=== PATIENT | female | born 1975 | race Caucasian/White ===

== ENCOUNTER 2020-06-08 10:04 | Outpatient (CLI) | payer OTHER, SELFPAY ==
--- NOTE | 2020-06-08 10:08 | MM_ITS ---
WS: [id number] Bilateral screening digital mammogram, 06/08/2020 Clinical Data: SCREENING Comparison: 03/14/2019, 02/20/2018, 01/15/2017, 10/18/2015, 05/25/2014, 01/11/2009. Findings: The breast parenchymal pattern shows heterogeneous density No spiculated masses or clustered calcific ations are seen. There are no secondary signs of carcinoma. MM/[place] [id number] Impression: 1. Negative bilateral mammogram unchanged. 2. Recommend annual screening mammograms. BIRADS: 1-Negative FOLLOW UP: 1 Year Follow-up The CAD warehouse checker was used.
== END 2020-06-08 10:05 | disposition home or self-care (01) ==
LOC: RADSHAW 10:07
PROVIDERS: PCP Family Medicine; Visit Provider Nurse Practitioner Women's Health
DX: Z12.31 Encounter for screening mammogram for malignant neoplasm of breast (principal)
CPT/HCPCS: 77067

== ENCOUNTER → 2020-10-06 11:13 | Outpatient (BNVA) | payer OTHER, SELFPAY | PROVIDERS: PCP Family Medicine; Visit Provider Nurse Practitioner Family | DX: B34.9 Viral infection, unspecified (principal); Z20.828 Contact with and (suspected) exposure to other viral communicable diseases | CPT/HCPCS: 87635 ==

== ENCOUNTER 2020-10-26 14:54 | Outpatient (CLI) | payer OTHER, SELFPAY ==
--- NOTE | 2020-10-26 15:05 | US_ITS ---
WS: [id number] ULTRASOUND THYROID TECHNIQUE: Ultrasound of the thyroid. CLINICAL INFORMATION: POST SURGICAL HYPOTHYROIDISM COMPARISON: Ultrasound 2019 FINDINGS: Prior thyroidectomy. No significant residual thyroid tissue. No cystic or solid lesions. No lesions to target for biopsy. No lymph nodes. Cervical lymphadenopathy: None. US/US soft tissue head neck [id number] IMPRESSION: Prior thyroidectomy. No suspicious lesions to target for biopsy.
== END 2020-10-26 14:55 | disposition home or self-care (01) ==
LOC: US 14:59
PROVIDERS: PCP Family Medicine; Visit Provider Internal Medicine Endocrinology, Diabetes & Metabolism
DX: Z85.850 Personal history of malignant neoplasm of thyroid (principal); E89.0 Postprocedural hypothyroidism
CPT/HCPCS: 76536

== ENCOUNTER 2021-02-08 14:35 | Outpatient (CLI) | payer OTHER, SELFPAY ==
--- NOTE | 2021-02-08 15:07 | CT_ITS ---
WS: [id number] CT scan of the neck. Additional two-dimensional coronal and sagittal reconstruction was performed. Clinical Data: LOCALIZED SWELLING, MASS AND LUMP NECK Comparison: CT neck, 10/02/2018. DLP: 2307.[address] scans at [facility] use at least one of these dose optimization techniques: automat ed exposure control; mA and/or kV adjustment per patient size (includes targeted exams where dose is matched to clinical indication); or iterative reconstruction. Findings: The thyroid gland is absent and there are clips in the thyroid bed and left supraclavicular area. No subcutaneous mass or abscess is seen. No lymphadenopathy is noted. The salivary glands are unremarkable. There is no prevertebral soft tiss ue swelling. The larynx is symmetric. The floor of the mouth and parapharyngeal spaces are normal. T he oral cavity is unremarkable. The carotid arteries bifurcate normally. The vertebral arteries are normal. The cervical spine is unr emarkable. The lung apices show no abnormalities. The portions of the intracranial circulation which are seen demonstrate no abnormalities. No erosion of the skull or skull base is seen. CT/CT neck w con* [id number] Impression: 1. Thyroidectomy. 2. Negative for lymphadenopathy, subcutaneous mass or abscess in the thyroid be d and adjacent tissue.
[2021-02-08] MEDS: iohexol 300 mg/mL 100 mL Btl IV (15:31)
== END 2021-02-08 14:36 | disposition home or self-care (01) ==
LOC: RADWPI 14:35
PROVIDERS: PCP Family Medicine; Visit Provider Specialist
DX: R22.1 Localized swelling, mass and lump, neck (principal); E89.0 Postprocedural hypothyroidism
CPT/HCPCS: 70491; Q9967

== ENCOUNTER 2021-06-09 12:53 | Outpatient (CLI) | payer OTHER, SELFPAY ==
--- NOTE | 2021-06-09 13:00 | MM_ITS ---
WS: [id number] BILATERAL DIGITAL SCREENING MAMMOGRAPHY WITH CAD CLINICAL INFORMATION: Z12.39 - Encounter for other screening for malignant neop... HISTORY: Screening mammogram. No current complaints. COMPARISON: June 08, 2020 TECHNIQUE: Bilateral CC and MLO views. FINDINGS: The breasts are composed of heterogeneous fibroglandular density tissue, which can limit the detectio n of small underlying mass lesions. No suspicious mass, asymmetry, calcifications, or architectural d istortion. No evidence of malignancy. MM/[place] [id number] IMPRESSION: BI-RADS: 1-Negative FOLLOW UP: 1 Year Follow-up Recommend return to annual screening mammography.
== END 2021-06-09 12:54 | disposition home or self-care (01) ==
LOC: RADSHAW 12:56
PROVIDERS: PCP Family Medicine; Visit Provider Nurse Practitioner Women's Health
DX: Z12.31 Encounter for screening mammogram for malignant neoplasm of breast (principal)
CPT/HCPCS: 77067

== ENCOUNTER → 2021-09-13 08:21 | Outpatient (BNVA) | payer OTHER, SELFPAY | PROVIDERS: PCP Family Medicine; Visit Provider Internal Medicine | DX: C73 Malignant neoplasm of thyroid gland (principal); Z90.89 Acquired absence of other organs | CPT/HCPCS: 99204 ==

== ENCOUNTER 2021-09-13 09:50 | Outpatient (CLI) | payer OTHER, SELFPAY ==
[2021-09-13 11:06] LABS: Thyroid Stimulating Hormone 0.11 uIU/mL (0.27-4.20)
== END 2021-09-13 09:51 | disposition home or self-care (01) ==
PROVIDERS: PCP Family Medicine; Visit Provider Internal Medicine
DX: C73 Malignant neoplasm of thyroid gland (principal)
CPT/HCPCS: 84439; 84443

== ENCOUNTER 2022-06-12 09:57 | Outpatient (CLI) | payer OTHER, SELFPAY ==
--- NOTE | 2022-06-12 10:07 | MM_ITS ---
WS: [id number] BILATERAL SCREENING DIGITAL BREAST TOMOSYNTHESIS MAMMOGRAM WITH CAD HISTORY: SCREENING COMPARISON: 06/09/2021, 06/08/2020 and 03/14/2019 Bilateral CC and MLO views with tomosynthesis and synthetic mammography submitted. Computer aided det ection analyzed. Breast composition: The breasts are heterogeneously dense, which may obscure small masses. No suspici ous masses, microcalcifications or architectural distortion. MM/[place] [id number] IMPRESSION: BI-RADS: 1-Negative FOLLOW UP: 1 Year Follow-up
== END 2022-06-12 09:58 | disposition home or self-care (01) ==
PROVIDERS: PCP Family Medicine; Visit Provider Nurse Practitioner Women's Health
DX: Z12.31 Encounter for screening mammogram for malignant neoplasm of breast (principal)
CPT/HCPCS: 77063; 77067

== ENCOUNTER → 2022-08-15 15:05 | Outpatient (BNVA) | payer OTHER, SELFPAY | PROVIDERS: PCP Family Medicine; Visit Provider Nurse Practitioner Women's Health | DX: Z01.419 Encounter for gynecological examination (general) (routine) without abnormal findings (principal); F32.9 Major depressive disorder, single episode, unspecified; R61 Generalized hyperhidrosis | CPT/HCPCS: 88175 ==

== ENCOUNTER → 2023-04-18 08:43 | Outpatient (BNVA) | payer OTHER, SELFPAY | PROVIDERS: PCP Family Medicine; Visit Provider Podiatrist Foot & Ankle Surgery | DX: M72.2 Plantar fascial fibromatosis (principal) | CPT/HCPCS: 73630; 99203 ==

== ENCOUNTER 2023-06-22 10:17 | Outpatient (CLI) | payer OTHER, SELFPAY ==
--- NOTE | 2023-06-22 10:27 | MM_ITS ---
WS: [id number] BILATERAL SCREENING DIGITAL TOMOSYNTHESIS MAMMOGRAM WITH CAD HISTORY: SCREENING COMPARISON: 06/12/2022 and 06/09/2021 Bilateral CC and MLO views with tomosynthesis and synthetic mammography submitted. Computer aided det ection analyzed. Breast composition: The breasts are heterogeneously dense, which may obscure small masses. No suspici ous masses, microcalcifications or architectural distortion. MM/[place] [id number] IMPRESSION: BI-RADS: 1-Negative FOLLOW UP: 1 Year Follow-up
== END 2023-06-22 10:18 | disposition home or self-care (01) ==
PROVIDERS: PCP Family Medicine; Visit Provider Family Medicine
DX: Z12.31 Encounter for screening mammogram for malignant neoplasm of breast (principal)
CPT/HCPCS: 77063; 77067

== ENCOUNTER → 2023-09-06 11:07 | Outpatient (BNVA) | payer OTHER, SELFPAY | PROVIDERS: PCP Family Medicine; Visit Provider Podiatrist Foot & Ankle Surgery | DX: M72.2 Plantar fascial fibromatosis (principal) | CPT/HCPCS: 20550; J1100; J3301; J3490 ==

== ENCOUNTER → 2023-10-16 13:15 | Outpatient (BNVA) | payer OTHER, SELFPAY | PROVIDERS: PCP Family Medicine; Visit Provider Podiatrist Foot & Ankle Surgery | DX: M72.2 Plantar fascial fibromatosis (principal) | CPT/HCPCS: 99212 ==

== ENCOUNTER → 2024-03-10 08:53 | Outpatient (BNVA) | payer OTHER, SELFPAY | PROVIDERS: PCP Family Medicine; Visit Provider Podiatrist Foot & Ankle Surgery | DX: M72.2 Plantar fascial fibromatosis (principal) | CPT/HCPCS: 20550; J1100; J3301; J3490 ==

== ENCOUNTER → 2024-04-07 15:59 | Outpatient (BNVA) | payer OTHER, SELFPAY | PROVIDERS: PCP Family Medicine; Visit Provider Podiatrist Foot & Ankle Surgery | DX: M72.2 Plantar fascial fibromatosis | CPT/HCPCS: 73630 ==

== ENCOUNTER → 2024-04-30 07:28 | Outpatient (BNVA) | payer OTHER, SELFPAY | PROVIDERS: PCP Family Medicine; Visit Provider Podiatrist Foot & Ankle Surgery | DX: S93.621A Sprain of tarsometatarsal ligament of right foot, initial encounter; S82.52XA Displaced fracture of medial malleolus of left tibia, initial encounter for closed fracture; X50.1XXA Overexertion from prolonged static or awkward postures, initial encounter | CPT/HCPCS: 73610; 73620 ==

== ENCOUNTER 2024-04-30 09:50 | Outpatient (CLI) | payer OTHER, SELFPAY | END 2024-04-30 09:51 | disposition home or self-care (01) | LOC: SPT 09:50 | PROVIDERS: PCP Family Medicine; Visit Provider Podiatrist Foot & Ankle Surgery | DX: Z46.89 Encounter for fitting and adjustment of other specified devices (principal); S93.621A Sprain of tarsometatarsal ligament of right foot, initial encounter; X58.XXXD Exposure to other specified factors, subsequent encounter | CPT/HCPCS: L4361 ==

== ENCOUNTER 2024-05-01 15:01 | Outpatient (CLI) | payer OTHER, SELFPAY ==
--- NOTE | 2024-05-01 15:15 | MRR_ITS ---
PROCEDURE INFORMATION: Exam: MR Right Lower Extremity Other Than Joint Without Contrast; Foot Exam date and time: 05/01/2024 3:24 PM Age: 48 years old Clinical indication: Injury or trauma; Other: Twisted foot; Sprain or strain; Right; Additional info: Surgical planning, lisfranc injury, 2mm slices and forefoot protocol TECHNIQUE: Imaging protocol: Magnetic resonance imaging of the right lower extremity without contrast. Exam focused on the foot. COMPARISON: CR XR foot RT 2V [id number] 04/30/2024 7:36 AM FINDINGS: There is subtle 1 mm offset of the 2nd tarsometatarsal articulation alignment with edema of the Lisfranc ligamentous complex. There is attenuation/indistinctness of the dorsal band of the Lisfranc ligament proper suggestive of partial tear. The interosseous and plantar bands are intact with evidence of sprain. There is a minimally displaced avulsion fracture of the plantar aspect of the 2nd metatarsal base at the plantar band attachment (images 9-10 of series 501). Additional nondisplaced avulsion fracture of the dorsum of the 3rd metatarsal base at the intermetatarsal ligament attachment (image 8 of series 501). There are subtle avulsive injuries of the medial aspect of the 1st metatarsal base and medial cuneiform (images 10-11 of series 701). Consider correlation with CT to evaluate for additional subtle avulsive injuries. Nondisplaced intra-articular fracture of the 4th metatarsal base. There may be subtle avulsive injuries of the dorsum of the cuboid in the region of the 4th tarsometatarsal articulation and dorsal lateral 3rd metatarsal base. There is associated surrounding soft tissue edema of the midfoot. No discrete fluid collection or hematoma. Visualized flexor and extensor tendons are intact. MR/MR foot RT wo con* [id number] IMPRESSION: 1. Lisfranc fracture-subluxation partial tear of the dorsal band and avulsion fracture of the base of the 2nd metatarsal at the plantar band attachment. 2. Nondisplaced avulsion fracture of the dorsum of the 3rd metatarsal base. 3. Nondisplaced intra-articular fracture of the 4th metatarsal base. 4. Subtle avulsive injuries of the 1st metatarsal base, medial cuneiform, lateral cuneiform and possibly the 3rd metatarsal base and dorsum of the cuboid. Correlation with CT may be helpful for osseous detail.
== END 2024-05-01 15:02 | disposition home or self-care (01) ==
PROVIDERS: PCP Family Medicine; Visit Provider Podiatrist Foot & Ankle Surgery
DX: S93.621A Sprain of tarsometatarsal ligament of right foot, initial encounter (principal); S92.321A Displaced fracture of second metatarsal bone, right foot, initial encounter for closed fracture; S92.331A Displaced fracture of third metatarsal bone, right foot, initial encounter for closed fracture; S92.344A Nondisplaced fracture of fourth metatarsal bone, right foot, initial encounter for closed fracture
CPT/HCPCS: 73718

== ENCOUNTER 2024-05-08 08:22 | Day surgery (SDC) | payer OTHER, SELFPAY ==
[2024-05-08] VITALS (14 sets, daily range): BP systolic 112–164; BP diastolic 67–96; PULSE 60–83; RESP 6–21; TEMP 36.1–36.4; O2SAT 91–96; BMI 29.1
[2024-05-08 08:55] LABS: OR HCG Qualitative Urine Negative (Negative)
[2024-05-08] MEDS: sodium chloride 0.9% 1,000 ML 30 ML IV (08:57)
[2024-05-08] MEDS: scopolamine 1.5 Patch 1 PATCH TRANSDERMA (08:57)
[2024-05-08] MEDS: CELEcoxib 200 mg Capsule 400 MG PO (08:58)
[2024-05-08] MEDS: gabapentin 300 mg Capsule PO (09:03)
--- NOTE | 2024-05-08 09:50 | P.HPUD_ITS ---
Surgery/Procedure H&P Update DATE OF PROCEDURE: May 08, 2024 DATE H&P PERFORMED: 05/05/24 H&P UPDATE INFORMATION: I have reviewed H&P completed within last 30 days, I have examined patient prior to procedure, No changes to prior documentation and H&P is in [facility] [place] on date indicated PREOP DIAGNOSIS: Right Lisfranc fracture and metatarsal fractures 1 through 4. PLANNED PROCEDURE: Operation Date: 05/08/24 09:00 Proposed Procedures p First and second tarsometatarsal joint fusion(Right) - Se Alfred DPM s ORIF right third metatarsal and right fourth metatarsal fracture(Right) - Se Alfred DPM
--- NOTE | 2024-05-08 09:55 | ANES.PREANE2 ---
Pre-Anesthetic Assessment Height/Weight: Height 1.65 m Weight 79.379 kg Temp Pulse Resp BP Pulse Ox O2 Del Method 97.6 F 76 17 164/94 96 Room Air 05/08/24 08:43 05/08/24 08:43 05/08/24 08:43 05/08/24 08:43 05/08/24 08:43 05/08/24 08:48 Preop Diagnosis: Right Lisfranc fracture and metatarsal fractures 1 through 4. Operation Date: 05/08/24 09:00 Proposed Procedures p First and second tarsometatarsal joint fusion(Right) - Se Alfred DPM s ORIF right third metatarsal and right fourth metatarsal fracture(Right) - Se Alfred DPM Familial anesthetic complications: none Was Beta Twyla taken within 24 hours: N/A Was Clonidine taken within 24 hours: N/A Last intake: Intake Last Liquid Date 05/07/24 Last Liquid Time 18:00 Last Solid Date 05/07/24 Last Solid Time 18:00 Social No alcohol and No tobacco Exam alert, oriented x 3, clear to auscultation bilaterally and regular rate & rhythm Airway Submandibular: within normal limits Cervical ROM: within normal limits Mallampati: Class II Dentition: full CV/HEM Hypertension Metabolic Thyroid Disease Neuropsych Anxiety and Depression Anesthetic Plan ASA status: 2 Anesthesia: General (TIVA) and Regional (specify below) (Popliteal blk) Medications/Allergies Home Medications Medication Instructions Recorded Confirmed Last Taken Type alprazolam 0.5 mg tablet 0.5 mg PO BEDTIME 04/18/23 05/07/24 05/07/24 History desogestrel 0.15 mg-ethinyl 1 tab PO DAILY #84 tabs 09/06/23 05/07/24 05/07/24 Rx estradiol 0.03 mg tablet (Apri) losartan 25 mg tablet 50 mg PO DAILY 11/11/23 05/07/24 05/07/24 History Cam boot to right #1 ea 04/30/24 05/05/24 Unknown Rx levothyroxine 150 mcg tablet 175 mcg PO DAILY 05/06/24 05/08/24 05/08/24 07:00 History fluoxetine 20 mg capsule 20 mg PO DAILY 05/07/24 05/07/24 05/07/24 History Allergies Allergy/AdvReac Type Severity Reaction Status Date / Time No Known Allergies Allergy Verified 05/08/24 08:38 Current Medications Generic Name Dose Route Start Last Admin Trade Name Freq PRN Reason Stop Dose Admin Sodium Chloride 1,000 mls @ 30 mls/hr 05/08/24 08:30 05/08/24 08:57 Sodium Chloride 0.9% IV 05/09/24 08:29 30 mls/hr .Q24H RAMON Administration PFSH Anesthesia Medical History No pertinent past medical history neghx: dm,dvt/pe PCP: Dr. Moy Hypothyroid Depression History of thyroid cancer treated with thyroidectomy and radioactive iodine. Surgical History History of dacryocystorhinostomy (~2021) RIGHT EYE History of thyroidectomy (10/2018) cancer--- finished with radioactive iodine Family History Father Diabetes Mother Hypertension Hyperlipidemia Breast cancer dx age 51 Heart disease Denies family history of Colon cancer Ovarian cancer Uterine cancer Thyroid disease Stroke Data Anesthesia Cardiac Studies: No Data to Display
[2024-05-08] MEDS: ceFAZolin 2,000 MG in sodium chloride 0.9% (plus) 50 ML 100 MG IV (10:17)
--- NOTE | 2024-05-08 10:36 | ANES.PROC ---
Anesthesia Procedures Procedure/Date: 05/08/24 Nerve Block ^: Nerve Block 1: Main Anesthesia: general anesthesia Time Out Performed: Yes Consent: requested by attending/covering physician, from patient, risks and benefits reviewed and patient agrees to proceed Nerve block location: popliteal (right) Anesthesia monitors applied: pulse oximetry, EKG, BP cuff and oxygen Nerve block position: supine Anesthetic Used: ropivicaine 0.5% Amount of anesthesia used (mL): 30 Ultrasound used to: recognize landmarks Nerve Stimulator Used?: No Interscalene/Femoral BLK: 4 stimuplex 21 g needle used for position and inplane approach Injection: neg aspiration of heme Patient Tolerated Procedure: well Complications: none
--- NOTE | 2024-05-08 10:52 | PM.OP ---
Operative Report Date of procedure: May 08, 2024 Pre-op diagnosis: Lisfranc fracture right foot involving first, second, third and fourth metatarsals. Post-op diagnosis: Same Procedure done: First and second tarsometatarsal joint fusion right foot. CPT code 46622 Implants: Miami Lapidus plate, Miami straight slanted plate. Miami 4 mm screw, Miami 3.5 millimeter screws and [place] 2.7 millimeter screws. 3-0 Vicryl, 4-0 Vicryl, 4-0 nylon Specimens removed/disposition: No specimens Pathology: No pathology Surgeon: Se Alfred DPM Advertising Account Representative: See intraoperative documentation Estimated blood loss: 5 See intraoperative documentation IV fluids: 0 Urine output: None Complications: No complications Brief History: Ms. Mccrary is an established 48 year old female patient here for follow up of her right foot pain and to go over recent MRI results. DOI 04/23/24. Patient reports while in [place] she was attempting to get into the pool and rolled left ankle and right foot curled under. Patient examined and evaluated, findings and treatment options discussed with patient at length. She has a closed fracture of the first, second, third, fourth metatarsals that are avulsion fracture and ligamentous injury of the first and second tarsometatarsal joints indicating substantial Lisfranc instability. Discussed various treatment options both conservative and surgical, I expressed concern with conservative treatment that she will invest time and recovery that will yield no significant healing and likely remain unstable and require surgical intervention staged out. Discussed ORIF versus primary arthrodesis given that her injury is largely ligamentous I am recommending primary arthrodesis of the first and second tarsometatarsal joints and possible ORIF of right third and fourth metatarsal fractures. I reviewed at length with the patient, the risks, potential complications, benefits, alternatives, expectations, and typical outcomes associated with the surgery. The risks and potential complications were explained in detail, including but not limited to infection, wound dehiscence or soft tissue complications, bleeding and hematoma, chronic edema, neuritis or nerve damage producing numbness or chronic pain, CRPS, failure to relieve pain or worsening pain, thick / painful / unsightly scar, limited motion / stiffness, malposition, delayed union, malunion, or nonunion, fracture, reaction to implants, anesthetic complications, venous thromboembolism, and deformity recurrence. I discussed the notion of no regrets with the patient as it pertains to complications and outcomes. The patient seemed to understand the nature of the proposed care and required convalescence. They asked appropriate questions, answered to their satisfaction. They are aware no guarantees can be made as to a satisfactory outcome and they understand there may be other possible unforeseen complications or outcomes not listed here that will be treated accordingly if they arise. There were no written or implied guarantees given to the patient. They gave informed consent to proceed. Procedure: Under mild sedation patient was brought to the operating room and placed on the operating table in supine position. A timeout was performed. Anesthesia was then administered by the anesthesia service. Local anesthesia injected by myself consisting of Marcaine and Exparel in a V-block proximal to the operative site, 20 cc of Marcaine 0.5% and 20 cc of Exparel. Well-padded pneumatic tourniquet applied to the right ankle. Right lower extremity was scrubbed, prepped and draped utilizing normal aseptic technique. Right foot was then exanguinated with an Esmarch bandage and tourniquet inflated to 250 mmHg. Patient was directed to the right first and second tarsometatarsal joints where dual incision was performed, incision was performed at the medial column at the medial aspect of the extensor hallucis longus tendon and at the second ray through skin with dissection carried down through subcutaneous tissue utilizing sharp and blunt technique down to the layer of periosteum with care taken to retract and preserve neurovascular and tendinous structures. All bleeders were ligated and cauterized as necessary. Periosteal incision was made in the base of the second and first metatarsal were freed from the soft tissue and ligamentous attachments, of note there was gross instability of the first and second tarsometatarsal joints. First and second tarsometatarsal joints were prepped for arthrodesis utilizing curettage, subchondral drilling and reduced and held temporarily with fracture reduction clamp and anatomic alignment under compression and then fixated utilizing standard AO technique, homerun screw at the first tarsometatarsal joint followed by Lapidus plate and compression plate dorsal locking at the second ray with excellent bony apposition and compression noted. AP, oblique and lateral views confirmed excellent placement of hardware not violating proximal or distal joints and anatomic alignment of the first and second tarsometatarsal joint arthrodesis site. Incisions were irrigated with saline solution and closed in a layered fashion with periosteum reapproximated with 3-0 Vicryl, subcutaneous tissue with 4-0 Vicryl and skin with 4-0 nylon. Stability appreciated at the third and fourth tarsometatarsal joints not necessitating fixation. Dressing consisting of Adaptic, sterile 4 x 4's, Kerlix, Ronal wrap and cam boot was applied. Tourniquet was deflated and a prompt hyperemic response was noted to the distal digits of the right foot. Patient tolerated procedure and anesthesia well and was transferred to the PACU with vital signs stable and vascular status intact. Following a period of postoperative monitoring she will be discharged home is to remain strict nonweightbearing and elevate right foot while resting. Was given at home care instructions and scheduled follow-up.
[2024-05-08] MEDS: BUPivacaine 0.5% INJ 30 mL XX (10:53)
[2024-05-08] MEDS: BUPivacaine liposome 13.3 mg/mL SDV 20 mL 266 MG INJECTION (11:41)
--- NOTE | 2024-05-08 12:08 | P.BOP_ITS ---
Date of Procedure: 02/08/24 Surgeon: Se Alfred DPM Clinical Practitioner(s): MARCELO Procedure(s) performed: Midfoot fusion first and second tarsometatarsal joints right foot Findings of the procedure(s): Gross instability at first and second tarsometatarsal joints right foot Estimated blood loss: 2 mL Specimen(s) removed: None Post-operative diagnosis: Right Lisfranc fracture dislocation No complications with anesthesia or surgery. Patient is nonweightbearing may heel touch only for transfer to the right lower extremity.
--- NOTE | 2024-05-08 12:38 | ANE.PACU2 ---
Inpatient post-anesthesia follow up: Airway intact: Yes Vital signs: Temperature 97.4 F Pulse Rate 81 Respiratory Rate 15 Blood Pressure 152/78 Pulse Oximetry 91 Oxygen Delivery Me thod Room Air Oxygen Flow Rate Fraction of Inspir ed Oxygen Hydration adequate: Yes Nausea and vomiting: No Pain level: 1 Mental status: Baseline
[2024-05-08] MEDS: oxyCODONE-APAP 10-325 mg Tablet 1 TAB PO (13:35)
--- NOTE | 2024-05-08 13:43 | XR_ITS ---
WS: [id number] C-ARM RADIOGRAPHS RIGHT FOOT; 2 IMAGES HISTORY: ORIF OF FOOT COMPARISON: None available. Intraoperative fixation hardware has been placed across the first tarsal metatarsal articulation and also at the second tarsometatarsal articulation. Horizontal screws extend between the first and secon d cuneiforms. XR/XR foot RT 2V [id number] IMPRESSION: Intraoperative fixation hardware between the medial and intermediate cuneiforms and the first and second proximal metatarsals.
== END 2024-05-08 13:55 | disposition home or self-care (01) ==
PROVIDERS: PCP Family Medicine; Visit Provider Podiatrist Foot & Ankle Surgery
PROC: (CPT 28740; principal; 2024-05-08 09:00)
PROC: (CPT 28485; 2024-05-08 09:00)
DX: S92.311A Displaced fracture of first metatarsal bone, right foot, initial encounter for closed fracture (principal); S92.321A Displaced fracture of second metatarsal bone, right foot, initial encounter for closed fracture; S92.331A Displaced fracture of third metatarsal bone, right foot, initial encounter for closed fracture; S92.341A Displaced fracture of fourth metatarsal bone, right foot, initial encounter for closed fracture; X50.9XXA Other and unspecified overexertion or strenuous movements or postures, initial encounter; I10 Essential (primary) hypertension; E03.9 Hypothyroidism, unspecified; F32.A Depression, unspecified; Z85.850 Personal history of malignant neoplasm of thyroid
CPT/HCPCS: 28730; 73620; 76000; 81025; C1713; C9290; J0690; J1100; J1170; J1200; J2250; J2405; J2704; J2795; J3010; J3490; J7030

== ENCOUNTER → 2024-05-27 11:08 | Outpatient (BNVA) | payer OTHER, SELFPAY | PROVIDERS: PCP Family Medicine; Visit Provider Podiatrist Foot & Ankle Surgery | DX: Z98.890 Other specified postprocedural states (principal) | CPT/HCPCS: 73630 ==

== ENCOUNTER → 2024-06-19 13:12 | Outpatient (BNVA) | payer OTHER, SELFPAY | PROVIDERS: PCP Family Medicine; Visit Provider Podiatrist Foot & Ankle Surgery | DX: Z98.890 Other specified postprocedural states (principal) | CPT/HCPCS: 73630 ==

== ENCOUNTER 2024-07-03 08:48 | Outpatient (CLI) | payer OTHER, SELFPAY ==
--- NOTE | 2024-07-03 08:51 | MM_ITS ---
WS: [id number] BILATERAL SCREENING DIGITAL TOMOSYNTHESIS MAMMOGRAM WITH CAD HISTORY: SCREENING COMPARISON: 06/22/2023, 06/12/2022 and 06/08/2020 Bilateral CC and MLO views with tomosynthesis and synthetic mammography submitted. Computer aided det ection analyzed. Breast composition: The breasts are heterogeneously dense, which may obscure small masses. No suspici ous masses, microcalcifications or architectural distortion. MM/[place] [id number] IMPRESSION: BI-RADS: 2-Benign FOLLOW UP: 1 Year Follow-up
== END 2024-07-03 08:49 | disposition home or self-care (01) ==
LOC: RAD 08:48
PROVIDERS: PCP Family Medicine; Visit Provider Nurse Practitioner Women's Health
DX: Z98.890 Other specified postprocedural states (principal)
CPT/HCPCS: 73630; 77063; 77067

== ENCOUNTER → 2024-07-24 06:51 | Outpatient (BNVA) | payer OTHER, SELFPAY | PROVIDERS: PCP Family Medicine; Visit Provider Podiatrist Foot & Ankle Surgery | DX: Z98.890 Other specified postprocedural states (principal) | CPT/HCPCS: 73630 ==

== ENCOUNTER 2024-08-19 09:07 | Outpatient (CLI) | payer OTHER, SELFPAY ==
--- NOTE | 2024-08-19 10:11 | PETR_ITS ---
PROCEDURE INFORMATION: Exam: PET/CT Skull Base to Mid-thigh Exam date and time: 08/19/2024 10:57 AM Age: 49 years old Clinical indication: Condition or disease; Primary cancer: Thyroid cancer; Initial oncological staging assessment LABS AND CLINICAL REPORTS: Glucose: 97 mg/dl Treatment strategy for malignancy (PET staging): Initial Staging (PI) TECHNIQUE: Imaging protocol: Following at least four-hour fasting and following the injection of radiopharmaceutical, low dose CT images were obtained. Then, PET images were obtained. Attenuation corrected images were constructed using the CT scan. Fused images of PET and CT were reviewed. The standardized uptake values (SUV) reported below are maximum values within a region of interest, expressed in gm/ml. Exam includes orbital meatal line to mid-thigh. Radiopharmaceutical: 10.57 mCi F-18 FDG (Fluorodeoxyglucose), IV. Time of imaging post radiopharmaceutical administration: 1 hour Injection site: Right antecubital vein COMPARISON: CT neck w con* [id number] 02/08/2021 3:17 PM FINDINGS: Brain: Visualized brain has normal physiologic uptake. Pharynx: Benign bilateral symmetric uptake in the tonsils and in the sublingual area. Larynx: No abnormal uptake. Thyroid: Status post thyroidectomy. Linear uptake up to 5.2 SUV within the resection bed of the thyroid descending into the suprasternal notch possibly represents benign inflammatory finding. Lungs, pleura and trachea: There are small bilobar FDG avid lung nodule suggestive of metastases, 4 nodules in the left lung and 1 nodule in the right lung measuring up to 0.9 cm with the highest uptake of 14.9 SUV. No pleural effusion. Heart: Normal physiologic uptake. There is no cardiomegaly. No coronary artery calcification is visualized. There is no pericardial effusion. Mediastinal space: No abnormal uptake. Liver: No abnormal uptake. Gallbladder and biliary ducts: No abnormal uptake. No calcified gallstones. Pancreas: No abnormal uptake. Spleen: No abnormal uptake. No splenomegaly. Adrenal glands: No abnormal uptake. No nodules. Kidneys and ureters: Normal physiologic uptake. No hydronephrosis. Stomach and bowel: No abnormal uptake. Diverticulosis in the sigmoid colon with no signs of acute diverticulitis. Vasculature: No abnormal uptake. No aortic aneurysm. Lymph nodes: 0.7 cm left parapharyngeal lymph node measures 21.3 SUV. No FDG avid lymphadenopathy in the chest, abdomen, pelvis, and extremities. Skeleton: No abnormal uptake in the visualized axial and appendicular skeleton. Soft tissues: 0.5 cm subcutaneous nodule in the right posterior perineum on series 202, image 57 with increased uptake of 3.6 SUV for correlation with physical exam. PET/PET skull to thigh INIT [id number] IMPRESSION: Postsurgical changes after thyroidectomy with possibly benign postsurgical inflammatory uptake in the resection bed of the thyroid. Left parapharyngeal lymph node with intense uptake of 21.3 SUV suggestive of shanti metastasis. A few subcentimeter bilateral lung metastases with the highest uptake of 14.9 SUV. 0.5 cm subcutaneous nodule in the right posterior perineum with slightly increased uptake of 3.6 SUV may be inflammatory in nature for correlation with physical exam.
== END 2024-08-19 09:08 | disposition home or self-care (01) ==
PROVIDERS: Absent Provider Internal Medicine Cardiovascular Disease; PCP Family Medicine; Visit Provider Otolaryngology
DX: C73 Malignant neoplasm of thyroid gland (principal); Z90.89 Acquired absence of other organs; R91.8 Other nonspecific abnormal finding of lung field; K57.90 Diverticulosis of intestine, part unspecified, without perforation or abscess without bleeding; R59.0 Localized enlarged lymph nodes; R93.89 Abnormal findings on diagnostic imaging of other specified body structures
CPT/HCPCS: 78815; A9552

== ENCOUNTER 2024-11-02 10:44 | Emergency (ER) | payer OTHER, SELFPAY ==
[2024-11-02 11:44] VITALS: BP 166/96; PULSE 83; RESP 18; TEMP 36.9; O2SAT 98; BMI 29.6
--- NOTE | 2024-11-02 11:59 | ED_ITS ---
HPI - General Adult 2 General: Chief complaint: General Medical Stated complaint: unable to eat or drink Time Seen by Provider: 11/02/24 11:55 Source: patient Mode of arrival: ambulatory Limitations: no limitations History of Present Illness: 49-year-old female states she had a tons illectomy done on Sunday had a lymph node removed on the left side as well. States she had some swelling since and is having a hard time tolerating p.o. She denies any fever denies any bleeding she denies any shortness of breath Associated symptoms: Deny chest pain, dyspnea, headache(s), nausea, rash or vomiting Related Data Home Medications Medication Instructions Recorded Confirmed alprazolam 0.5 mg tablet 0.5 mg PO BEDTIME 04/18/23 11/02/24 fluoxetine 20 mg capsule 20 mg PO DAILY 11/02/24 11/02/24 levothyroxine 175 mcg tablet 175 mcg PO QAM 11/02/24 11/02/24 losartan 50 mg tablet 50 mg PO DAILY 11/02/24 11/02/24 oxycodone 5 mg tablet 5 mg PO Q4H 11/02/24 11/02/24 Previous Rx's Medication Instructions Recorded desogestrel 0.15 mg-ethinyl 1 tab PO DAILY #84 tabs 10/28/24 estradiol 0.03 mg tablet (Cyred EQ) Allergies Allergy/AdvReac Type Severity Reaction Status Date / Time No Known Allergies Allergy Verified 11/02/24 10:27 Review of Systems 2 Const: Denies: fever(s), chills, body aches or change in appetite ENMT: Reports: throat pain; Denies: dental pain Card: Denies: chest pain Resp: Denies: dyspnea GI: Denies: abdominal pain, nausea, vomiting or diarrhea Musc: Denies: neck pain or back pain Skin/Breast: Denies: rash Neuro: Denies: headache(s) PFSH ED 2 PFSH: Medical History No pertinent past medical history neghx: dm,dvt/pe PCP: Dr. Moy Hypothyroid Depression History of thyroid cancer treated with thyroidectomy and radioactive iodine. Surgical History H/O foot surgery Midfoot fusion first and second tarsometatarsal joints right foot H/O neck surgery revision of thyroidectomy, with lymph node removal- 2 out of 3 were malignant History of dacryocystorhinostomy (~2021) RIGHT EYE History of thyroidectomy (10/2018) cancer--- finished with radioactive iodine Family History Father Diabetes Mother Hypertension Hyperlipidemia Breast cancer dx age 51 Heart disease Denies family history of Colon cancer Ovarian cancer Uterine cancer Thyroid disease Stroke Social History Smoking and tobacco/nicotine status: never used tobacco/nicotine Second hand smoke exposure: No Alcohol intake: never Substance/Drug Use: never Physical Exam 2 Const: COMMON NORMALS: no acute distress, patient oriented x3 and healthy appearing HENMT: COMMON NORMALS: normocephalic and atraumatic HEAD & SCALP: n ormocephalic and atraumatic OTHER: Swelling posterior pharynx postsurgical he is able to tolerate her own saliva no bleeding Eye: COMMON NORMALS: Equal, round and reactive pupils present and EOMs intact bilaterally PUPIL: Yes Equal, round and reactive pupils present Neck/C-Spine: COMMON NORMALS: full ROM and supple Chest: COMMONS NORMALS: normal inspection of the chest Resp: COMMON NORMALS: normal respiratory effort Cardio: COMMON NORMALS: regular rate RATE: regular rate Extremity: COMMON NORMALS: normal to inspection and full ROM Neuro: COMMON NORMALS: patient oriented x3, moves all extremities and no focal motor deficits Psych: COMMON NORMALS: mental status grossly normal, Normal thought process present and cooperative THOUGHT PROCESS: Normal thought process present Skin: COMMON NORMALS: no rashes or lesions noted and no wounds GENERAL SKIN EXAM: no rashes or lesions noted Course 2 Vital Signs: Vital signs: Vital Signs Temperature 98.4 F 11/02/24 11:44 Pulse Rate 76 11/02/24 12:04 Respiratory Rate 18 11/02/24 11:44 Blood Pressure 161/93 11/02/24 12:04 Pulse Oximetry 96 11/02/24 12:04 Oxygen Delivery Me thod Room Air 11/02/24 12:04 MDM - General Adult Medical Decision Making Patient presents here with difficulty swallowing is likely from her tonsillectomy. She is given Decadron here she is able to tolerate liquids states she feels much improved has no signs of obstruction no fever she is to call her ENT in the morning she is return if worsening she understands agrees to plan. Medical Records I reviewed the patient's medical records. Lab Data I reviewed the patient's lab results. 11/02/24 12:25 11/02/24 12:25 Laboratory Results WBC 11.58 10^3/uL (3.29-11.43) H 11/02/24 12:25 RBC 4.72 10^6/uL (3.85-5.65) 11/02/24 12:25 Hgb 13.60 g/dL (11.27-16.99) 11/02/24 12:25 Hct 42.3 % (36-47) 11/02/24 12: MCV 89.6 fl (85-98) 11/02/24 12:25 MCH 28.8 pg (27-33) 11/02/24 12:25 MCHC 32.2 g/dL (30-55) 11/02/24 12:25 RDW 12.5 % (12.1-15.1) 11/02/24 12:25 Plt Count 237 10^3/cmm (157-399) 11/02/24 12: MPV 10.1 fL (7.4-10.4) 11/02/24 12:25 Neut % (Auto) 82.0 % 11/02/24 12:25 Lymph % (Auto) 10.8 % 11/02/24 12:25 [place] % (Auto) 6.1 % 11/02/24 12:25 Eos % (Auto) 0.1 % 11/02/24 12:25 Baso % (Auto) 0.3 % 11/02/24 12:25 Neut # (Auto) 9.50 10^3/uL (1.8-7.7) H 11/02/24 12:25 Lymph # (Auto) 1.3 10^3/uL (0.8-4.8) 11/02/24 12:25 [place] # (Auto) 0.7 10^3/uL (0.2-0.9) 11/02/24 12:25 Eos # (Auto) 0.0 10^3/uL (0.0-0.8) 11/02/24 12:25 Baso # (Auto) 0.0 10^3/uL (0.0-0.1) 11/02/24 12:25 Nucleated RBC % (auto) 0 % 11/02/24 12:25 Nucleated RBCs # 0.0 /100WBC 11/02/24 12:25 Sodium 135 mmol/L (136-145) L 11/02/24 12:25 Potassium 3.8 mmol/L (3.5-5.1) 11/02/24 12:25 Chloride 99 mmol/L (98-107) 11/02/24 12:25 Carbon Dioxide 21 mmol/L (22-29) L 11/02/24 12:25 Anion Gap 18.8 (5-19) 11/02/24 12:25 BUN 13 mg/dL (6-20) 11/02/24 12:25 Creatinine 0.8 mg/dL (0.5-0.9) 11/02/24 12:25 GFR Calculation 75.9 mL/min (90-130) L 11/02/24 12:25 Glucose 76 mg/dL (65-115) 11/02/24 12:25 Calculated Osmolality 279 mOsm/kg (285-295) L 11/02/24 12:25 Calcium 8.6 mg/dL (8.5-10.5) 11/02/24 12:25 Total Bilirubin 0.4 mg/dL (0.15-1.2) 11/02/24 12:25 AST 14 U/L (0-32) 11/02/24 12:25 ALT 10 U/L (0-33) 11/02/24 12:25 Alkaline Phosphatase 118 U/L (35-105) H 11/02/24 12:25 Total Protein 6.9 g/dL (6.6-8.7) 11/02/24 12:25 Albumin 3.6 g/dL (3.5-5.2) 11/02/24 12:25 Globulin 3.3 g/dL (1.3-4.6) 11/02/24 12:25 No radiology studies performed this visit Discharge Plan Discharge Patient Disposition: Home Clinical Impression: Difficulty swallowing Condition: Stable Prescriptions: No Action alprazolam 0.5 mg tablet 0.5 mg PO BEDTIME desogestrel-ethinyl estradiol [Cyred EQ] 0.15-0.03 mg tablet 1 tab PO DAILY Qty: 84 3RF losartan 50 mg tablet 50 mg PO DAILY levothyroxine 175 mcg tablet 175 mcg PO QAM oxycodone 5 mg tablet 5 mg PO Q4H fluoxetine 20 mg capsule 20 mg PO DAILY Discharge Orders: Discharge ED (Routine); Ordered 11/02/24 Ordered By: Maria T Dooley Referrals: Romero Moy MD [Primary Care Provider] - 4-7 days Discharge Diet: Advance as tolerated Discharge Activity: Resume usual activity Patient Instructions: Tonsillectomy (DC) Coding Level of Care Code ED Dietary Aid for Darek Steele
[2024-11-02 12:04] VITALS: BP 161/93; PULSE 76; O2SAT 96
[2024-11-02] MEDS: dexamethasone 10 mg/mL INJ IVP (12:24)
[2024-11-02] MEDS: sodium chloride 0.9% 1,000 ML 999 ML IV (12:24)
[2024-11-02 12:34] LABS: Basophils % 0.3 %; Eosinophils % 0.1 %; Hematocrit 42.3 % (36-47); Lymphocytes # 1.3 10^3/uL (0.8-4.8); Lymphocytes % 10.8 %; Mean Corpuscular HGB Conc 32.2 g/dL (30-55); Mean Corpuscular Hemoglobin 28.8 pg (27-33); Mean Corpuscular Volume 89.6 fl (85-98); Mean Platelet Volume 10.1 fL (7.4-10.4); Monocytes # 0.7 10^3/uL (0.2-0.9); Monocytes % 6.1 %; Nucleated Red Blood Cells % 0 %; Platelet Count 237 10^3/cmm (157-399); Red Blood Count 4.72 10^6/uL (3.85-5.65); Red Cell Distribution Width 12.5 % (12.1-15.1); White Blood Count 11.58 10^3/uL (3.29-11.43)
[2024-11-02 12:49] LABS: Alanine Aminotransferase 10 U/L (0-33); Albumin Level 3.6 g/dL (3.5-5.2); Alkaline Phosphatase 118 U/L (35-105); Anion Gap 18.8 (5-19); Aspartate Amino Transferase 14 U/L (0-32); Blood Urea Nitrogen 13 mg/dL (6-20); Calcium 8.6 mg/dL (8.5-10.5); Carbon Dioxide 21 mmol/L (22-29); Chloride 99 mmol/L (98-107); Creatinine Clr Calc Pharmacy 88.3145; Globulin 3.3 g/dL (1.3-4.6); Glomerular Filtration Rate 75.9 mL/min (90-130); Glucose 76 mg/dL (65-115); Osmolality Calculated 279 mOsm/kg (285-295); Potassium 3.8 mmol/L (3.5-5.1); Sodium 135 mmol/L (136-145); Total Bilirubin 0.4 mg/dL (0.15-1.2); Total Protein 6.9 g/dL (6.6-8.7)
[2024-11-02 13:34] VITALS: BP 145/83; PULSE 78; O2SAT 96
== END 2024-11-02 13:36 | disposition home or self-care (01) ==
PROVIDERS: Emergency Provider Emergency Medicine; PCP Family Medicine
DX: R13.10 Dysphagia, unspecified (principal); Z85.850 Personal history of malignant neoplasm of thyroid
CPT/HCPCS: 80053; 85025; 96374; 99284; J1100; J7030

== ENCOUNTER 2024-11-20 15:06 | Outpatient (CLI) | payer OTHER, SELFPAY ==
--- NOTE | 2024-11-20 15:30 | MM_ITS ---
WS: [id number] LEFT 3D TOMOSYNTHESIS DIGITAL MAMMOGRAPHY WITH CAD CLINICAL INFORMATION: N64.52 - Nipple discharge HISTORY: LEFT breast nipple discharge sometimes bloody. COMPARISON: 07/03/2024 and 06/02/2023 TECHNIQUE: 3 views of the left breast were obtained. FINDINGS: The left breast is composed of heterogeneous fibroglandular density tissue, which can limit the detec tion of small underlying mass lesions. Somewhat dense parenchymal tissue subareolar LEFT breast. Ultr asound of this area is pending. ULTRASOUND BREAST LEFT TECHNIQUE: Ultrasound left breast focused area of concern. CLINICAL INFORMATION: N64.52 - Nipple discharge FINDINGS: Ultrasound subareolar LEFT breast. Numerous dilated ducts subareolar LEFT breast. Dilated ducts demon strate intraductal debris. No focal solid intraductal or vascular lesions visualized to target for bi opsy. Recommend 6-month follow-up to evaluate change or stability. If continued or recurrent bloody nipple discharge or palpable lump patient can return sooner for me[place] tional evaluation MM/MM diag LT tomosynthesis [id number] IMPRESSION: DENSITY: The breasts are heterogeneously dense, which may obscure small masses. BI-RADS: 3 - Probably Benign FOLLOW UP: 6 Month Follow-up Recommend 6-month follow-up LEFT breast diagnostic mammography and ultrasound f or the dilated ducts subareolar LEFT breast
--- NOTE | 2024-11-20 16:00 | US_ITS ---
WS: [id number] LEFT 3D TOMOSYNTHESIS DIGITAL MAMMOGRAPHY WITH CAD CLINICAL INFORMATION: N64.52 - Nipple discharge HISTORY: LEFT breast nipple discharge sometimes bloody. COMPARISON: 07/03/2024 and 06/02/2023 TECHNIQUE: 3 views of the left breast were obtained. FINDINGS: The left breast is composed of heterogeneous fibroglandular density tissue, which can limit the detec tion of small underlying mass lesions. Somewhat dense parenchymal tissue subareolar LEFT breast. Ultr asound of this area is pending. ULTRASOUND BREAST LEFT TECHNIQUE: Ultrasound left breast focused area of concern. CLINICAL INFORMATION: N64.52 - Nipple discharge FINDINGS: Ultrasound subareolar LEFT breast. Numerous dilated ducts subareolar LEFT breast. Dilated ducts demon strate intraductal debris. No focal solid intraductal or vascular lesions visualized to target for bi opsy. Recommend 6-month follow-up to evaluate change or stability. If continued or recurrent bloody nipple discharge or palpable lump patient can return sooner for me[place] tional evaluation US/US breast LT limited* [id number] IMPRESSION: DENSITY: The breasts are heterogeneously dense, which may obscure small masses. BI-RADS: 3 - Probably Benign FOLLOW UP: 6 Month Follow-up Recommend 6-month follow-up LEFT breast diagnostic mammography and ultrasound f or the dilated ducts subareolar LEFT breast
== END 2024-11-20 15:07 | disposition home or self-care (01) ==
LOC: RAD 15:09
PROVIDERS: PCP Family Medicine; Visit Provider Nurse Practitioner Women's Health
DX: N60.42 Mammary duct ectasia of left breast (principal); R92.322 Mammographic fibroglandular density, left breast; N64.52 Nipple discharge
CPT/HCPCS: 76642; 77061; G0279

== ENCOUNTER → 2025-09-09 06:59 | Outpatient (BNVA) | payer OTHER, SELFPAY | PROVIDERS: PCP Family Medicine; Visit Provider Podiatrist Foot & Ankle Surgery | DX: M79.671 Pain in right foot (principal); Z98.890 Other specified postprocedural states; M65.971 Unspecified synovitis and tenosynovitis, right ankle and foot | CPT/HCPCS: 73630 ==